=== PATIENT | female | born 1995 | race Caucasian/White ===

== ENCOUNTER 2017-01-18 14:19 | Emergency (ER) | payer OTHER ==
[2017-01-18] MEDS ORDERED: ACETAMINOPHEN 500 MG TABLET (FP) PO ONE (14:29)
[2017-01-18] MEDS ORDERED: ONDANSETRON *ODT* 4 MG TABLET SL ONE (14:29)
[2017-01-18] MEDS ORDERED: DIPHTH,PERTUSS(ACELL),TET 0.5 ML DISP.SYRIN IM ONE (14:29)
[2017-01-18 14:33] VITALS: BP 148/94; PULSE 71; TEMP 98.3; BMI 19.7
[2017-01-18] MEDS ORDERED: ONDANSETRON *ODT* 4 MG TABLET ONE (15:40)
[2017-01-18] MEDS ORDERED: ACETAMINOPHEN 325 MG TABLET (FP) ONE (15:40)
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
== END 2017-01-18 17:08 | disposition home or self-care (01) ==
LOC: JER 14:19
PROC: 3E0234Z Introduction of Serum, Toxoid and Vaccine into Muscle, Percutaneous Approach (ICD-10-PCS; principal; 2017-01-18)
DX: S05.11XA Contusion of eyeball and orbital tissues, right eye, initial encounter (principal); Y04.2XXA Assault by strike against or bumped into by another person, initial encounter; Y93.89 Activity, other specified; Y92.038 Other place in apartment as the place of occurrence of the external cause; Y07.59 Other non-family member, perpetrator of maltreatment and neglect
CPT/HCPCS: 70450-TC; 70486-TC; 84703; 90715; 99282-25

== ENCOUNTER 2017-06-19 19:33 | Emergency (ER) | payer OTHER ==
[2017-06-19 19:46] VITALS: BP 110/59; PULSE 84; TEMP 99
--- NOTE | 2017-06-19 21:20 | PDOC ---
History of Present Illness - General Chief Complaint: Pain Stated Complaint: CRAMPS/6 WEEKS Time Seen by Provider: 06/19/17 21:15 - History of Present Illness Initial Comments: 06/19/17 21:41 21-year-old female complaining of quadrant pain pelvic pain for 3 days. LMP 08/08/2017. Positive urine [facility] of one week ago. Patient was seen and [facility] ER for missed period. Patient denies vaginal discharge , vaginal bleeding and urinary symptoms. Denies abdominal pain, nausea, vomiting and diarrhea, fever. Past History - Past Medical History Allergies/Adverse Reactions: Allergies Allergy/AdvReac Type Severity Reaction Status Date / Time tree nut Allergy Intermediate Rash Verified 06/19/17 19:43 apple [Apple] Allergy Verified 06/19/17 19:43 kiwi Allergy Verified 06/19/17 19:43 peach Allergy Verified 06/19/17 19:43 Home Medications: Ambulatory Orders Albuterol Sulfate Inhaler - [Ventolin HFA Inhaler -] 1 - 2 inh PO QID PRN Ondansetron [Zofran -] 4 mg PO TID PRN #14 tablet 01/18/17 Asthma: Yes Cancer: No Cardiac Disorders: No Diabetes: No HTN: No Seizures: No Thyroid Disease: No - Reproductive History (#): 1 Para: 0 - Immunization History Immunization Up to Date: Yes - Psycho/Social/Smoking Cessation Hx Anxiety: No Suicidal Ideation: No Smoking History: Never smoked Have you smoked in the past 12 months: No Hx Alcohol Use: No Drug/Substance Use Hx: No Substance Use Type: None Hx Substance Use Treatment: No Review of Systems - Review of Systems ABD/GI: Yes: Other (pelvic cramping). No: Symptoms Reported, See HPI, Abdominal Distended, Abd. Pain w/ defecation, Blood Streaked Bowels, Constipated , Diarrhea, Difficulty Swallowing, Nausea, Poor Appetite, Poor Fluid Intake, Rectal Bleeding, Vomiting, Indigestion, Abdominal cramping, Tarry Stools : No: Symptoms Reported, See HPI, Burning, Dysuria, Discharge, Frequency, Flank Pain, Hematuria, Incontinence, Pain, Urgency, Testicular Mass, Testicular Swelling, Lesions, Testicular Pain, Other *Physical Exam - Vital Signs Last Vital Signs Temp Pulse Resp BP Pulse Ox 99.0 F 84 18 110/59 99 06/19/17 19:43 06/19/17 19:43 06/19/17 19:43 06/19/17 19:43 06/19/17 19:43 - Physical Exam General Appearance: Yes: Appropriately Dressed Respiratory/Chest: positive: Lungs Clear, Normal Breath Sounds Female Pelvic Exam: positive: normal external exam, cervical os closed, discharge (white vaginal discharge) Gastrointestinal/Abdominal: positive: Normal Bowel Sounds, Soft. negative: Tender Extremity: positive: Normal Capillary Refill, Normal Inspection, Normal Range of Motion Integumentary: positive: Normal Color, Dry, Warm Neurologic: positive: Fully Oriented, Alert, Normal Mood/Affect Medical Decision Making - Medical Decision Making 06/19/17 22:21 A: pelvic pain in P: cbc beta hcg TVUS. 06/19/17 23:07 patient eloped prior to workup completed. patient not in the ER. *DC/Admit/Observation/Transfer Diagnosis at time of Disposition: Pelvic pain during in first trimester, antepartum - Referrals Referrals: Alysa Melvin MD [Primary Care Provider] -
== END 2017-06-19 23:10 | disposition left against medical advice (07) ==
LOC: JER 19:33
DX: O26.891 Other specified pregnancy related conditions, first trimester (principal); R10.2 Pelvic and perineal pain; Z3A.01 Less than 8 weeks gestation of pregnancy
CPT/HCPCS: 99281-25

== ENCOUNTER 2017-07-11 14:35 | Emergency (ER) | payer OTHER ==
[2017-07-11 15:02] VITALS: BP 111/67; PULSE 79; TEMP 98.7
--- NOTE | 2017-07-11 17:28 | PDOC ---
History of Present Illness - General Chief Complaint: Vaginal Bleeding Stated Complaint: 9 WEEKS /ABD PAIN Time Seen by Provider: 07/11/17 17:04 History Source: Patient Exam Limitations: No Limitations - History of Present Illness Travel History: No Initial Comments: 07/11/17 17:26 22 yr female with LMP 05/08/17 presents with lower abd cramping, pressure for 3 days. Pt states she had spotting 3 days ago none now. . Pt with history of asthma takes symbicort and albuterol, vitamins . Pt denies fever neg nvd. MANAGER RESOURCE Dr.Sophia Null Timing/Duration: reports: resolved prior to arrival Past History - Past Medical History Allergies/Adverse Reactions: Allergies Allergy/AdvReac Type Severity Reaction Status Date / Time tree nut Allergy Intermediate Rash Verified 07/11/17 15:00 apple [Apple] Allergy Verified 07/11/17 15:00 kiwi Allergy Verified 07/11/17 15:00 peach Allergy Verified 07/11/17 15:00 Asthma: Yes Cancer: No Cardiac Disorders: No Diabetes: No HTN: No Seizures: No Thyroid Disease: No - Reproductive History (#): 1 Para: 0 - Immunization History Immunization Up to Date: Yes - Psycho/Social/Smoking Cessation Hx Anxiety: No Suicidal Ideation: No Smoking History: Never smoked Have you smoked in the past 12 months: No Hx Alcohol Use: No Drug/Substance Use Hx: No Substance Use Type: None Hx Substance Use Treatment: No Abd/GI Specific PMHX - Complaint Specific PMHX Colitis: No Diverticulitis: No Gall Bladder Disease: No GERD: No Hepatitis: No Irritable Bowel Synd (IBS): No Pancreatitis: No GI Ulcer Disease: No *Physical Exam - Vital Signs Last Vital Signs Temp Pulse Resp BP Pulse Ox 98.7 F 79 18 111/67 100 07/11/17 15:01 07/11/17 15:01 07/11/17 15:01 07/11/17 15:01 07/11/17 15:01 - Physical Exam General Appearance: Yes: Nourished, Appropriately Dressed HEENT: positive: EOMI, JORDAN Respiratory/Chest: positive: Lungs Clear, Normal Breath Sounds Cardiovascular: positive: Regular Rhythm, Regular Rate Female Pelvic Exam: positive: normal external exam, adnexal tenderness ( bilateral tenderness on palpation ). negative: CMT, discharge, lesions, vaginal bleeding Gastrointestinal/Abdominal: positive: Normal Bowel Sounds, Tender (suprapubic), Soft. negative: Guarding, Rebound Lymphatic: negative: Adenopathy Musculoskeletal: positive: Normal Inspection. 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 NML intact, Fully Oriented, Alert, Normal Mood/ Affect, Normal Response, Motor Strength 03/31 ED Treatment Course - LABORATORY CBC & Chemistry Diagram: 07/11/17 17:45 07/11/17 17:45 - RADIOLOGY Radiology Studies Ordered: Category Date Time Status TRANSVAGINAL US PREG [US] Stat Ultrasound 07/11/17 17:25 Ordered - Consult/PCP Time Called: 19:14 Case discussed with personal care physician: Mary Patel Medical Decision Making - Medical Decision Making 07/11/17 18:43 cc: early with lower abd cramping, had spotting 3 days ago non in the past 24hrs denies back pain no flank pain no fever or chills no vaginal discharge or urinary complaints/ no history of STD will r/o ectopic r/o SAB labs, urine , transvaginal US 07/11/17 19:20 case discused in detail with . labs, US result discussed pt to follow in the clinic in 2 weeks for repeat ultrasound. discussed in detail with patient and will follow up as discussed. *DC/Admit/Observation/Transfer Diagnosis at time of Disposition: Pelvic pain during in first trimester, antepartum, Subchorionic hematoma in first trimester - Discharge Dispostion Disposition: HOME Condition at time of disposition: Good - Referrals Referrals: Alysa Melvin MD [Primary Care Provider] - Mary Patel MD [Staff Physician] - - Patient Instructions Additional Instructions: you may have some bleeding in the next week or so, if the bleeding is heavy or painful call your esthetician and manager medical [facility] follow up with your esthetician and [facility] in 2 weeks for a repeat ultrasound any worsening symptoms return to the ER
[2017-07-11 17:51] LABS: BASOPHIL 0.3 % (0-2.0); EOSINOPHIL 2.2 % (0-4.5); MCH 30.6 pg (25.7-33.7); MCHC 34.4 g/dl (32.0-36.0); MEAN PLT VOLUME 7.9 fl (7.5-11.1); NEUTROPHILS 65.6 % (42.8-82.8); PLATELET COUNT 316 K/MM3 (134-434); WHITE BLOOD COUNT 16.1 K/mm3 (4.0-10.0)
[2017-07-11 17:57] LABS: URINE APPEARANCE SLCLOUDY; URINE BILIRUBIN NEGATIVE (NEGATIVE); URINE BLOOD NEGATIVE (NEGATIVE); URINE COLOR YELLOW; URINE GLUCOSE (UA) NEGATIVE (NEGATIVE); URINE KETONE NEGATIVE (NEGATIVE); URINE LEUK ESTERASE NEGATIVE (NEGATIVE); URINE NITRITE NEGATIVE (NEGATIVE); URINE PROTEIN NEGATIVE (NEGATIVE); URINE UROBILINOGEN NEGATIVE mg/dL (0.2-1.0)
[2017-07-11 18:27] LABS: ALBUMIN 3.9 g/dl (3.4-5.0); ANION GAP 10 (8-16); CALCIUM 9.3 mg/dL (8.5-10.1); CO2 27 mmol/L (21-32); CREATININE 0.5 mg/dL (0.55-1.02); GLUCOSE,RANDOM 63 mg/dL (74-106); SGOT/AST 14 U/L (15-37); SGPT/ALT 19 U/L (12-78)
[2017-07-11] MEDS ORDERED: ACETAMINOPHEN 325 MG TABLET (FP) PO ONE (18:32)
[2017-07-11 18:44] LABS: ALK PHOS 61 U/L (45-117); TOT PROT 7.4 g/dl (6.4-8.2)
[2017-07-11] MEDS ORDERED: ACETAMINOPHEN 325 MG TABLET (FP) ONE (18:44)
== END 2017-07-11 19:26 | disposition home or self-care (01) ==
LOC: JERFT 14:35 → JER 14:35 → JERFT 19:26
DX: O26.891 Other specified pregnancy related conditions, first trimester (principal); Z3A.09 9 weeks gestation of pregnancy; R10.2 Pelvic and perineal pain
CPT/HCPCS: 36415; 76801-TC; 80053; 81003; 84702; 84703; 85025; 86850; 86900; 86901; 87086; 87491; 87591; 99281-25

== ENCOUNTER 2018-01-13 12:43 | Emergency (ER) | payer OTHER ==
[2018-01-13 13:03] VITALS: BP 122/67; PULSE 96; TEMP 98; BMI 25.7
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
== END 2018-01-13 14:25 | disposition home or self-care (01) ==
LOC: JERFT 12:43
DX: B86 Scabies (principal)
CPT/HCPCS: 99281-25

== ENCOUNTER 2020-01-05 11:23 | Emergency (ER) | payer OTHER ==
[2020-01-05 11:31] VITALS: BP 119/81; PULSE 104; TEMP 99; BMI 26.7
[2020-01-05] MEDS ORDERED: IBUPROFEN 600 MG TABLET (FP) PO ONE ×2 (12:34→12:37)
--- NOTE | 2020-01-05 12:40 | PDOC ---
History of Present Illness - General Chief Complaint: Respiratory Stated Complaint: FLU SYMPTOMS Time Seen by Provider: 01/05/20 12:17 History Source: Patient Exam Limitations: No Limitations - History of Present Illness Initial Comments: 01/05/20 12:35 Patient is a 24-year-old female who presents to the ED with intermittent fevers , cough and body aches for the last 3 days. She believes she has the flu. She has a history of asthma. She does not recall if she had a flu shot. She denies any nausea or vomiting. She states her 1-year-old child has similar symptoms. Past History - Past Medical History Allergies/Adverse Reactions: Allergies Allergy/AdvReac Type Severity Reaction Status Date / Time tree nut Allergy Intermediate Rash Verified 01/05/20 11:30 apple [Apple] Allergy Verified 01/05/20 11:30 kiwi Allergy Verified 01/05/20 11:30 peach Allergy Verified 01/05/20 11:30 Home Medications: Ambulatory Orders Acetaminophen [Tylenol .Regular Strength -] 650 mg PO Q3H PRN tablet 02/08/18 Ibuprofen [Motrin -] 200 mg PO Q4H PRN tablet 02/08/18 Vitamins (Sjr) - 1 tab PO DAILY tablet 02/08/18 Asthma: Yes (no recent attacks) Cancer: No Cardiac Disorders: No COPD: No Diabetes: No HTN: No Seizures: No Thyroid Disease: No - Reproductive History (#): 1 Para: 0 - Immunization History Immunization Up to Date: Yes - Psycho Social/Smoking Cessation Hx Smoking History: Never smoked Have you smoked in the past 12 months: No Hx Alcohol Use: No Drug/Substance Use Hx: No Substance Use Type: None Hx Substance Use Treatment: No Review of Systems - Review of Systems Comments:: 01/05/20 12:37 - Review of Systems Able to Perform ROS?: Yes (via parent) Constitutional: No: Irritability, Positive: Fever, Chills, Loss of Appetite HEENTM: No: Eye Pain, Ear Pain, Throat Pain, Mouth/Throat Swelling, Mouth Pain, Difficulty Swallowing Respiratory: No: Cough, Shortness of Breath, Wheezing, Sputum Production Cardiac (ROS): No: Chest Pain, Chest Tightness ABD/GI: No: Nausea, Vomiting, Abdominal Pain, Diarrhea, Constipation : No Dysuria, No Hematuria, No Frequency, No Urgency Musculoskeletal: No: Back Pain, Joint Pain, Neck Pain; Positive bodyaches Integumentary: No: Lesions, Rash Neurological: No: Headache, Numbness, Tingling, Change in Behavior. *Physical Exam - Vital Signs Last Vital Signs Temp Pulse Resp BP Pulse Ox 99 F 104 H 20 119/81 99 01/05/20 11:27 01/05/20 11:27 01/05/20 11:27 01/05/20 11:27 01/05/20 11:27 - Physical Exam 01/05/20 12:38 - Physical Exam General Appearance: Nourished, Appropriately Dressed, No Distress HEENT: EOMI, Normal Voice, No Pharyngeal Erythema, No Muffled/Hoarse voice, No Tonsillar Exudate, No Tonsillar Erythema, + Nasal Congestion, + Rhinorrhea, Hearing Grossly Normal, TMs Normal, No TM Bulging, No TM Dullness, No TM Erythema; Positive coryza Neck: Supple, No Lymphadenopathy (R), No Lymphadenopathy (L), No Rigidity, No Decreased range of motion Respiratory/Chest: Lungs Clear, Normal Breath Sounds. No Respiratory Distress, No Accessory Muscle Use; Good air entry bilaterally without any adventitious lung sounds. Cardiovascular: Regular Rhythm, Regular Rate, S1, S2 Gastrointestinal/Abdominal: Normal Bowel Sounds, Soft. Non-tender, No Guarding , No Rebound, No Rigidity Musculoskeletal: Normal Inspection. No Decreased Range of Motion Extremity: Normal Capillary Refill, Normal Inspection Integumentary: Normal Color, Dry. 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 Since she is already 3 days from the start of her symptoms, Tamiflu is not indicated. She should get plenty of rest and drink plenty of fluids. She should follow-up with her primary doctor within 1 to 2 days for repeat evaluation. She can take Tylenol or ibuprofen for fevers or body aches. Discharge - Discharge Information Problems reviewed: Yes Clinical Impression/Diagnosis: Flu-like symptoms Condition: Stable Disposition: HOME - Follow up/Referral Referrals: Alysa Melvin MD [Primary Care Provider] - - Patient Discharge Instructions Patient Printed Discharge Instructions: DI for Viral Syndrome Additional Instructions: Get plenty of rest and drink plenty of fluids. Take Tylenol or ibuprofen for fevers or body aches. Be sure to see your primary doctor within 1 to 2 days for repeat evaluation. - Post Discharge Activity Work/Back to School Note: Back to Work
== END 2020-01-05 12:47 | disposition home or self-care (01) ==
LOC: JERFT 11:23
DX: J11.1 Influenza due to unidentified influenza virus with other respiratory manifestations (principal); J34.89 Other specified disorders of nose and nasal sinuses
CPT/HCPCS: 99282-25

== ENCOUNTER 2021-05-10 14:50 | Emergency (ER) | payer OTHER ==
[2021-05-10 15:09] VITALS: BP 147/98; PULSE 104; TEMP 98.1; BMI 26.6
[2021-05-10] MEDS ORDERED: KETOROLAC TROMETHAMINE 30 MG/1 ML VIAL IM ONE (16:10)
[2021-05-10] MEDS ORDERED: ACETAMINOPHEN 500 MG TABLET (FP) PO ONE (17:02)
[2021-05-10] MEDS ORDERED: ACETAMINOPHEN 500 MG TABLET (FP) ONE (17:25)
[2021-05-10] MEDS ORDERED: OXYMETAZOLINE 0.05% NASAL SOLUTION 15 ML BOTTLE NS ONE (18:18)
== END 2021-05-10 19:45 | disposition home or self-care (01) ==
LOC: JERFT 14:50
PROC: 3E0233Z Introduction of Anti-inflammatory into Muscle, Percutaneous Approach (ICD-10-PCS; principal; 2021-05-10)
DX: S02.2XXA Fracture of nasal bones, initial encounter for closed fracture (principal); S02.92XA Unspecified fracture of facial bones, initial encounter for closed fracture
CPT/HCPCS: 70486-TC; 99284-25

== ENCOUNTER 2021-06-05 18:52 | Emergency (ER) | payer OTHER ==
[2021-06-05 19:04] VITALS: BP 116/74; PULSE 78; TEMP 98.8; BMI 27.8
== END 2021-06-05 20:09 | disposition home or self-care (01) ==
LOC: JER 18:52
DX: Z48.02 Encounter for removal of sutures (principal)
CPT/HCPCS: 73070-TC-LT-FY; 99281-25

== ENCOUNTER 2022-08-23 12:16 | Emergency (ER) | payer OTHER ==
[2022-08-23 12:58] VITALS: BP 145/102; PULSE 75; RESP 18; TEMP 97.8; BMI 28.5
[2022-08-23 14:36] LABS: BASO % 0.6 % (0-2.0); EOS % 1.6 % (0-4.5); HEMATOCRIT 39.7 % (32.4-45.2); HEMOGLOBIN 13.5 GM/dL (10.7-15.3); LYMPH % 24.4 % (8-40); MCH 29.5 pg (25.7-33.7); MCHC 33.9 g/dl (32.0-36.0); MEAN CELL VOLUME 87.1 fl (80-96); MEAN PLT VOLUME 7.4 fl (7.5-11.1); MONO % 10.3 % (3.8-10.2); NEUT % 63.1 % (42.8-82.8); PLATELET COUNT 357 10^3/uL (134-434); RBC 4.56 M/mm3 (3.60-5.2); WHITE BLOOD COUNT 11.9 K/mm3 (4.0-10.0)
[2022-08-23 14:51] LABS: PH,URINE 6.5 (5.0-8.0); URINE APPEARANCE CLOUDY; URINE BILIRUBIN NEGATIVE (NEGATIVE); URINE COLOR YELLOW; URINE GLUCOSE (UA) NEGATIVE (NEGATIVE); URINE KETONE NEGATIVE (NEGATIVE); URINE LEUK ESTERASE NEGATIVE (NEGATIVE); URINE NITRITE NEGATIVE (NEGATIVE); URINE PROTEIN NEGATIVE (NEGATIVE)
[2022-08-23 15:01] LABS: CHLORIDE 106 mmol/L (98-107); SODIUM 140 mmol/L (136-145)
[2022-08-23 15:03] LABS: ALBUMIN 3.5 g/dl (3.4-5.0); ANION GAP 7 MMOL/L (8-16); BLOOD UREA NITROGEN 9.2 mg/dL (7-18); CALCIUM 9.2 mg/dL (8.5-10.1); CO2 27 mmol/L (21-32); GLUCOSE,RANDOM 79 mg/dL (74-106)
[2022-08-23 15:05] LABS: LIPASE 107 U/L (73-393)
[2022-08-23 15:06] LABS: SGOT/AST 12 U/L (15-37); SGPT/ALT 21 U/L (13-61)
[2022-08-23 15:07] LABS: CREATININE 0.6 mg/dL (0.55-1.3)
[2022-08-23 15:08] LABS: BILIRUBIN,TOTAL 0.7 mg/dL (0.2-1); TOT PROT 6.9 g/dl (6.4-8.2)
[2022-08-23 15:09] LABS: ALK PHOS 126 U/L (45-117)
== END 2022-08-23 17:08 | disposition home or self-care (01) ==
LOC: JER 12:16
DX: R10.2 Pelvic and perineal pain (principal); N64.4 Mastodynia
CPT/HCPCS: 36415; 76830-TC; 80053; 81003; 83690; 84702; 84703; 85025; 87086; 87186; 87491; 87591; 99284-25

== ENCOUNTER 2023-01-19 13:59 | Emergency (ER) | payer OTHER ==
[2023-01-19 14:14] VITALS: BP 143/85; PULSE 105; RESP 19; TEMP 98.3; BMI 28.8
== END 2023-01-19 16:34 | disposition home or self-care (01) ==
LOC: JER 13:59 → JERFT 13:59
PROC: 0HQBXZZ Repair Right Upper Arm Skin, External Approach (ICD-10-PCS; principal; 2023-01-19)
DX: S41.111A Laceration without foreign body of right upper arm, initial encounter (principal); X99.1XXA Assault by knife, initial encounter
CPT/HCPCS: 99282-25

== ENCOUNTER 2023-03-19 08:44 | Emergency (ER) | payer OTHER ==
[2023-03-19 08:51] VITALS: BP 124/81; PULSE 99; RESP 18; TEMP 98.6; BMI 27.9
== END 2023-03-19 10:29 | disposition home or self-care (01) ==
LOC: JERFT 08:44
DX: J30.2 Other seasonal allergic rhinitis (principal); R09.81 Nasal congestion; R06.7 Sneezing; H57.89 Other specified disorders of eye and adnexa
CPT/HCPCS: 99283-25

== ENCOUNTER 2025-02-04 01:10 | Emergency (ER) | payer OTHER ==
[2025-02-04 01:21] VITALS: BP 125/86; PULSE 100; RESP 20; TEMP 98.6; BMI 31.7
[2025-02-04] MEDS ORDERED: FAMOTIDINE 20 MG/50 ML IVPB 20 MG/50 ML MG IVPB ONE (01:46)
[2025-02-04] MEDS ORDERED: ACETAMINOPHEN INJECTION 100 ML ONE (01:46)
[2025-02-04] MEDS ORDERED: ONDANSETRON 4 MG/2 ML VIAL ONE (01:46)
[2025-02-04] MEDS: ACETAMINOPHEN 1000 MG/100 ML BAG IVPB ONE (01:48)
[2025-02-04] MEDS: ONDANSETRON 4 MG/2 ML VIAL IVPUSH ONE (01:48)
[2025-02-04] MEDS: FAMOTIDINE 20 MG/50 ML IVPB 20 MG/50 ML MG IVPB ONE (01:48)
[2025-02-04] MEDS: SODIUM CHLORIDE 0.9% 500 ML INFUS.BAG IV ONE (01:48)
[2025-02-04 01:50] LABS: BASO % 0.5 % (0-2.0); EOS % 2.4 % (0-4.5); HEMATOCRIT 43.8 % (32.4-45.2); HEMOGLOBIN 14.8 GM/dL (10.7-15.3); LYMPH % 34.4 % (8-40); MCH 29.1 pg (25.7-33.7); MCHC 33.8 g/dl (32.0-36.0); MEAN CELL VOLUME 86.2 fl (80-96); MEAN PLT VOLUME 7.2 fl (7.5-11.1); MONO % 15.5 % (3.8-10.2); NEUT % 47.2 % (42.8-82.8); PLATELET COUNT 275 10^3/uL (134-434); RBC 5.08 M/mm3 (3.60-5.2); RDW 12.8 % (11.6-15.6); WHITE BLOOD COUNT 6.1 K/mm3 (4.0-10.0)
[2025-02-04] MEDS: MAG HYDROX/ALH/SMC/DPHA/LIDO 240 ML MOUTHWASH MM ONE (02:08)
[2025-02-04 02:20] LABS: ALBUMIN 3.7 g/dl (3.4-5.0); BLOOD UREA NITROGEN 11.8 mg/dL (7-18); MAGNESIUM 2.4 mg/dL (1.8-2.4)
[2025-02-04 02:23] LABS: CREATININE 0.8 mg/dL (0.55-1.3); PHOSPHOROUS 3.2 mg/dL (2.5-4.9)
[2025-02-04 02:24] LABS: BILIRUBIN,TOTAL 0.4 mg/dL (0.2-1)
[2025-02-04 02:32] LABS: POTASSIUM 3.5 mmol/L (3.5-5.1); TOT PROT 7.7 g/dl (6.4-8.2)
== END 2025-02-04 02:58 | disposition home or self-care (01) ==
LOC: JER 01:10
PROC: 3E033GC Introduction of Other Therapeutic Substance into Peripheral Vein, Percutaneous Approach (ICD-10-PCS; principal; 2025-02-04)
PROC: 3E033NZ Introduction of Analgesics, Hypnotics, Sedatives into Peripheral Vein, Percutaneous Approach (ICD-10-PCS; 2025-02-04)
PROC: 3E033GC Introduction of Other Therapeutic Substance into Peripheral Vein, Percutaneous Approach (ICD-10-PCS; 2025-02-04)
DX: R11.2 Nausea with vomiting, unspecified (principal); M79.10 Myalgia, unspecified site; R50.9 Fever, unspecified; R05.9 Cough, unspecified; R19.7 Diarrhea, unspecified; E86.0 Dehydration; R07.0 Pain in throat; R20.8 Other disturbances of skin sensation
CPT/HCPCS: 36415; 80053; 83690; 83735; 84100; 84703; 85025; 96365; 96375; 99284-25; J0131

== ENCOUNTER 2025-03-27 08:24 | Observation (INO) | payer OTHER ==
[2025-03-27 08:49] VITALS: BMI 27.4
[2025-03-27] MEDS ORDERED: ACETAMINOPHEN INJECTION 100 ML ONE (09:11)
[2025-03-27] MEDS ORDERED: ONDANSETRON 4 MG/2 ML VIAL ONE (09:11)
[2025-03-27] MEDS: ACETAMINOPHEN 1000 MG/100 ML BAG IVPB ONE (09:32)
[2025-03-27] MEDS: SODIUM CHLORIDE 0.9% 500 ML INFUS.BAG IV ONE (09:32)
[2025-03-27] MEDS: ONDANSETRON 4 MG/2 ML VIAL IVPUSH ONE (09:32)
[2025-03-27 10:35] LABS: HEMATOCRIT 41.4 % (34.1-44.9); HEMOGLOBIN 13.7 g/dL (11.2-15.7); MCHC 33.1 g/dl (32.2-35.5); MEAN CELL VOLUME 87.3 fl (79.4-94.8); MEAN PLT VOLUME 9.6 fl (9.4-12.3); PLATELET COUNT 372 x10^3/uL (182-369); RDW 12.1 % (12.1-16.5)
[2025-03-27 10:58] LABS: MONOCYTE # 5.25 x10^3/uL (0.24-0.86)
[2025-03-27 11:06] LABS: INR 1.17 (0.83-1.09); PROTHROMBIN TIME (PATIENT) 12.7 SEC (9.7-13.0)
[2025-03-27 11:09] LABS: ACTIVATED PTT 33.8 SECONDS (25.2-36.5)
[2025-03-27 11:28] LABS: POTASSIUM 4.1 mmol/L (3.5-5.1)
[2025-03-27 11:31] LABS: ALBUMIN 3.6 g/dl (3.4-5.0); CALCIUM 10.1 mg/dL (8.5-10.1)
[2025-03-27] MEDS: PIPERACILLIN/TAZOB 4.5 GM 4.5 GM in DEXTROSE 5%-WATER 100 ML IVPB ONE (11:31)
[2025-03-27 11:33] LABS: CREATININE 0.8 mg/dL (0.55-1.3)
[2025-03-27 11:35] LABS: BILIRUBIN,TOTAL 1.4 mg/dL (0.2-1)
[2025-03-27 11:39] LABS: BLOOD UREA NITROGEN 10.1 mg/dL (7-18)
[2025-03-27] MEDS ORDERED: ONDANSETRON 4 MG/2 ML VIAL IVPUSH PRN (11:47)
[2025-03-27] MEDS: IBUPROFEN 800 MG/8 ML IJ IVPB PRN (13:00)
[2025-03-27] MEDS: LIDOCAINE 4% PATCH TP SCH (13:07)
[2025-03-27] MEDS: CEFTRIAXONE 1 G/50 ML PREMIX 50 ML IVPB SCH (15:52)
[2025-03-27] MEDS: LIDOCAINE PATCH REMOVAL MC SCH (22:08)
[2025-03-28 08:44] LABS: HEMATOCRIT 37.9 % (34.1-44.9); HEMOGLOBIN 12.2 g/dL (11.2-15.7); MCHC 32.2 g/dl (32.2-35.5); MEAN CELL VOLUME 87.5 fl (79.4-94.8); MEAN PLT VOLUME 9.5 fl (9.4-12.3); PLATELET COUNT 348 x10^3/uL (182-369)
[2025-03-28 08:54] LABS: POTASSIUM 3.6 mmol/L (3.5-5.1)
[2025-03-28 09:05] LABS: BLOOD UREA NITROGEN 8.1 mg/dL (7-18); CALCIUM 9.3 mg/dL (8.5-10.1); MAGNESIUM 2.2 mg/dL (1.8-2.4)
[2025-03-28 09:06] LABS: ALBUMIN 3.1 g/dl (3.4-5.0); BILIRUBIN,TOTAL 1.2 mg/dL (0.2-1)
[2025-03-28 09:09] LABS: CREATININE 0.6 mg/dL (0.55-1.3); PHOSPHOROUS 3.7 mg/dL (2.5-4.9)
[2025-03-28 09:10] LABS: TOT PROT 6.8 g/dl (6.4-8.2)
[2025-03-28] MEDS ORDERED: ENOXAPARIN NA (PORCINE) 40 MG/0.4 ML DISP.SYRIN SQ SCH (10:00)
[2025-03-28 13:35] LABS: BILIRUBIN,DIRECT 0.3 mg/dL (0.0-0.2)
[2025-03-28] MEDS: POLYETHYLENE GLYCOL (HEALTHYLAX) 3350 17 GM PACKET PO SCH (21:11)
[2025-03-29] MEDS: ACETAMINOPHEN 500 MG TABLET (FP) PO PRN (06:09)
[2025-03-29 10:38] LABS: ABSOLUTE IMMATURE GRANULOCYTES 0.08 x10^3/uL (0.0-0.031); BASOPHILS # 0.08 x10^3/uL (0.01-0.08); EOSINOPHIL % 2.2 % (0.7-5.8); EOSINOPHILS # 0.27 x10^3/uL (0.04-0.36); HEMATOCRIT 38.7 % (34.1-44.9); HEMOGLOBIN 12.7 g/dL (11.2-15.7); MCHC 32.8 g/dl (32.2-35.5); MEAN CELL VOLUME 86.4 fl (79.4-94.8); MEAN PLT VOLUME 9.1 fl (9.4-12.3); MONOCYTE % 9.9 % (4.7-12.5); PLATELET COUNT 377 x10^3/uL (182-369); RDW 11.9 % (12.1-16.5)
[2025-03-29 11:02] LABS: POTASSIUM 4.1 mmol/L (3.5-5.1)
[2025-03-29 11:04] LABS: ALBUMIN 3.2 g/dl (3.4-5.0)
[2025-03-29 11:06] LABS: CALCIUM 9.7 mg/dL (8.5-10.1)
[2025-03-29 11:07] LABS: MAGNESIUM 2.2 mg/dL (1.8-2.4)
[2025-03-29 11:08] LABS: CREATININE 0.7 mg/dL (0.55-1.3)
[2025-03-29 11:09] LABS: BILIRUBIN,TOTAL 0.8 mg/dL (0.2-1); TOT PROT 7.2 g/dl (6.4-8.2)
[2025-03-29 12:30] LABS: HEPATITIS B SURF AG NON-MATERN NON-REACTIVE (NONREACTIVE)
[2025-03-29 12:59] LABS: HCV DIAGNOSTIC IN-HOUSE W/RFLX NON-REACTIVE (NONREACTIVE)
[2025-03-30 08:37] LABS: ABSOLUTE IMMATURE GRANULOCYTES 0.09 x10^3/uL (0.0-0.031); EOSINOPHIL % 2.5 % (0.7-5.8); EOSINOPHILS # 0.26 x10^3/uL (0.04-0.36); HEMATOCRIT 41.8 % (34.1-44.9); HEMOGLOBIN 13.5 g/dL (11.2-15.7); MCHC 32.3 g/dl (32.2-35.5); MEAN PLT VOLUME 9.2 fl (9.4-12.3); MONOCYTE # 0.98 x10^3/uL (0.24-0.86); MONOCYTE % 9.3 % (4.7-12.5); PLATELET COUNT 433 x10^3/uL (182-369); RDW 11.9 % (12.1-16.5)
[2025-03-30 08:53] LABS: POTASSIUM 3.9 mmol/L (3.5-5.1)
[2025-03-30 09:02] LABS: BLOOD UREA NITROGEN 13.2 mg/dL (7-18); CALCIUM 9.8 mg/dL (8.5-10.1)
[2025-03-30 09:03] LABS: ALBUMIN 3.4 g/dl (3.4-5.0); MAGNESIUM 2.5 mg/dL (1.8-2.4)
[2025-03-30 09:06] LABS: CREATININE 0.7 mg/dL (0.55-1.3)
[2025-03-30 09:07] LABS: BILIRUBIN,TOTAL 0.7 mg/dL (0.2-1); TOT PROT 7.4 g/dl (6.4-8.2)
[2025-03-30 10:26] VITALS: BP 134/82; PULSE 69; RESP 18; TEMP 98.2
== END 2025-03-30 11:22 | disposition home or self-care (01) ==
LOC: JER 08:24 → JERBED 09:26 → J8W 11:13 → OBSVTOIN 11:39 → INTOOBSV 11:39
PROVIDERS: ADMIT Internal Medicine
PROC: 3E033NZ Introduction of Analgesics, Hypnotics, Sedatives into Peripheral Vein, Percutaneous Approach (ICD-10-PCS; principal; 2025-03-27)
PROC: 3E033GC Introduction of Other Therapeutic Substance into Peripheral Vein, Percutaneous Approach (ICD-10-PCS; 2025-03-27)
PROC: 3E0337Z Introduction of Electrolytic and Water Balance Substance into Peripheral Vein, Percutaneous Approach (ICD-10-PCS; 2025-03-27)
DX: K57.32 Diverticulitis of large intestine without perforation or abscess without bleeding (principal); K59.09 Other constipation; R94.5 Abnormal results of liver function studies; K92.1 Melena; D72.829 Elevated white blood cell count, unspecified; J45.909 Unspecified asthma, uncomplicated
CPT/HCPCS: 36415; 71045-TC-FY; 74177-TC; 76700-TC; 76830-TC; 80048; 80053; 81003; 82248; 82977; 83605; 83690; 83735; 84100; 84703; 85025; 85027; 85610; 85730; 86140; 86704; 86708; 86803; 86850; 86900; 86901; 87040; 87086; 87340; 87389; 87517; 96365; 96375; 99283-25; 99291; G0378; J0131